=== PATIENT | female | born 2000 | race Caucasian/White ===

== ENCOUNTER 2020-11-17 16:08 | Emergency (ER) | payer OTHER, SELFPAY ==
--- NOTE | ~2020-11-17 | XR_ITS ---
EXAMINATION: XR chest 2V EXAM DATE: 11/17/2020 17:04 INDICATION: Dry Cough/Flu-Like Symptoms X 4 Days. TECHNIQUE: Frontal and lateral projections of the chest obtained and reviewed. There is no prior nilo dy for comparison. FINDINGS: The lungs are clear. There are no pleural effusions. The cardiomediastinal silhouette is within normal limits. There is no pneumothorax suspected. The bones and soft tissues are unremarkab le. IMPRESSION: Normal chest x-ray exam. Reviewed, dictated and finalized at location A. IMPRESSION: Normal chest x-ray exam.
[2020-11-17 16:20] VITALS: BP 117/88; PULSE 118; RESP 14; TEMP 37.2; O2SAT 100
--- NOTE | 2020-11-17 17:49 | ED.URI ---
HPI - URI/Sore Throat General Chief Complaint: Upper Respiratory Infection Stated Complaint: Chest pain Time Seen by Provider: 11/17/20 17:38 Source: patient and RN notes reviewed Mode of arrival: ambulatory Limitations: no limitations History of Present Illness HPI Narrative: Patient presents today with a 4 to 5-day history of body aches, dry cough, sweats, swollen and dry throat, shortness of breath, pain with inspiration, nasal congestion. Denies fever, abdominal pain, nausea, vomiting, diarrhea. No history of asthma. Has been taking DayQuil, NyQuil, Sudafed, migraine medication with some relief. Initially when her symptoms began she had a negative COVID-19 rapid test. Related Data Home Medications Medication Instructions Recorded Confirmed dextroamphetamine-amphetamine 20 mg PO DAILY 11/17/20 11/17/20 [Adderall XR] Allergies Allergy/AdvReac Type Severity Reaction Status Date / Time No Known Allergies Allergy Verified 11/17/20 17:13 Review of Systems Review of Systems: CONSTITUTIONAL: Denies fever, chills. + Body aches, sweats EYES: Denies visual changes, redness, or discharge. ENT: Denies rhinorrhea, sore throat, or otalgia.+ Congestion, sinus pressure CARDIOVASCULAR: Denies chest pain, palpitations, or edema. RESPIRATORY: + Cough, shortness of breath, pain with inspiration GASTROINTESTINAL: Denies abdominal pain, nausea, vomiting, or diarrhea. GENITOURINARY: Denies dysuria or hematuria. SKIN: Denies rash, itching, or wounds. MUSCULOSKELETAL: Denies back pain, joint pain, or myalgia. NEUROLOGIC: Denies numbness, tingling, or weakness.+ Headache PSYCH: Denies depression or anxiety. PMFSH Comments At time of signature, I have reviewed and agree with nursing past medical, surgical, social and family history unless otherwise noted. Please see nursing chart for further information. There is no relevant family history pertinent to the presenting complaint Exam Narrative: GENERAL: Well-appearing, well-nourished, and in no acute distress. HEAD: Normocephalic, atraumatic. EYES: EOMI. No redness or drainage. Conjunctivae normal. ENT: Mucous membranes pink and moist. Nares clear. No rhinorrhea. TMs normal bilaterally. Throat normal. Uvula midline. NECK: Normal AROM. Supple. No lymphadenopathy. CHEST: No respiratory distress. Clear to auscultation. Tenderness to the right anterior ribs. Tenderness to the left sternal border. HEART: Regular rate and rhythm. No murmur appreciated. Normal peripheral pulses. ABDOMEN: Soft, nontender, nondistended, normal active bowel sounds. MUSCULOSKELETAL: No bony tenderness. EXTREMITIES: Normal range of motion. No edema. SKIN: Warm, dry, no rash. Capillary refill normal. Normal skin turgor. NEURO: No focal deficits. Alert and oriented x3. Gait steady. PSYCH: Normal affect. No signs of depression or anxiety. Course Vital Signs Vital signs: Vital Signs Temperature 99.0 F 11/17/20 16:20 Pulse Rate 118 H 11/17/20 16:20 Respiratory Rate 14 11/17/20 16:20 Blood Pressure 117/88 11/17/20 16:20 Pulse Oximetry 100 11/17/20 16:20 Temperature 99.0 F 11/17/20 16:20 Pulse Rate 118 H 11/17/20 16:20 Respiratory Rate 14 11/17/20 16:20 Blood Pressure 117/88 11/17/20 16:20 Pulse Oximetry 100 11/17/20 16:20 Reviewed. Pt has been instructed to follow up with her PCP regarding her elevated blood pressure today. MDM - URI/Sore Throat Differential Diagnosis Differential diagnosis: Likely upper respiratory infection, sinusitis, viral infection, bronchitis and other (COVID-19, pneumonia) Lab Data Attestation: I reviewed the patient's lab results. Labs: Lab Results 11/17/20 Range/Units 16:35 POC SARS CoV-2 Ag Negative (Negative) Imaging Data Radiologist's impression: ITS Impressions Chest X-Ray 11/17/20 17:07 IMPRESSION: Normal chest x-ray exam. Critical Care Time Critical Care Time Critical Care Time:
== END 2020-11-17 18:00 | disposition home or self-care (01) ==
PROVIDERS: Emergency Provider Nurse Practitioner
DX: M94.0 Chondrocostal junction syndrome [Tietze] (principal); R09.1 Pleurisy; Z20.822 Contact with and (suspected) exposure to COVID-19
CPT/HCPCS: 71046; 87426; 99213; C9803; G0463

== ENCOUNTER 2021-02-25 12:19 | Emergency (ER) | payer OTHER, SELFPAY ==
--- NOTE | ~2021-02-25 | XR_ITS ---
EXAMINATION: XR chest 1V portable EXAM DATE: 02/25/2021 20:39 INDICATION: SOB, chest tightness, cold sweats, swollen/sore throat . TECHNIQUE: Portable AP frontal chest x-ray was obtained. Comparison is made to prior examination from 11/17/2020. FINDINGS: The lungs are clear. There are no pleural effusions. The cardiomediastinal silhouette is within normal limits. There is no pneumothorax suspected. The bones and soft tissues are unremarkab le. IMPRESSION: Normal chest x-ray exam. Reviewed, dictated and finalized at location A. ICATIONS SYSTEM ANALYST IMPRESSION: Normal chest x-ray exam.
[2021-02-25 12:53] VITALS: BP 115/87; PULSE 120; RESP 17; TEMP 37; O2SAT 100
--- NOTE | 2021-02-25 12:56 | ECG_ITS ---
Measurements Intervals [place] Rate: 109 P: 80 OR: 123 QRS: 84 QRSD: 82 T: 23 QT: 323 QTc: 435 Interpretive Statements SINUS TACHYCARDIA MINIMAL Q WAVES- INFERIOR LEADS BORDERLINE ST-T WAVE ABNORMALITY- INFERIOR LEADS ABNORMAL ECG Electronically Signed On 02-25-2021 13:02:55 INTEGRATION SOFTWARE ENGINEER by Sree Sheth D.O.
[2021-02-25 19:16] VITALS: BP 117/81; PULSE 116; TEMP 36.5; O2SAT 98
--- NOTE | 2021-02-25 20:24 | ED.SOB ---
HPI - SOB/Dyspnea General Chief Complaint: Shortness of Breath/Dyspnea <Vickie Barreto MD - Last Filed: 02/25/21 21:16> Stated Complaint: cant breathe <Vickie Barreto MD - Last Filed: 02/25/21 21:16> Time Seen by Provider: 02/25/21 20:13 <Vickie Barreto MD - Last Filed: 02/25/21 21:16> Source: patient <Vickie Barreto MD - Last Filed: 02/25/21 21:16> Mode of arrival: ambulatory <Vickie Barreto MD - Last Filed: 02/25/21 21:16> Limitations: no limitations <Vickie Barreto MD - Last Filed: 02/25/21 21:16> History of Present Illness HPI Narrative: This is a 20 year old female who presents for evaluation of shortness of breath and chest tightness. Patient states she has not felt well for 3 days. She reports hoarseness and swollen lymph nodes in her neck. She was evaluated at an urgent care yesterday for UTI but her symptoms have now resolved. She did not talk to them about her shortness of breath or chest tightness. She was started on antibiotics. She states she feels like when she lays down she can not catch her breath.She has diffuse chest tightness. She denies runny nose, sore throat, congestion, fever or chills. She denies leg swelling or calf pain. She discontinued control and adderall 1 month ago. She reports intermittent marijuana use but she has not used in 1 week. <Vickie Barreto MD - Last Filed: 02/25/21 21:16> Related Data Home Medications: Home Medications Medication Instructions Recorded Confirmed dextroamphetamine-amphetamine 20 mg PO DAILY 11/17/20 11/17/20 [Adderall XR] <Vickie Barreto MD - Last Filed: 02/25/21 21:16> Allergies/Adverse Reactions: Allergies Allergy/AdvReac Type Severity Reaction Status Date / Time No Known Allergies Allergy Verified 11/17/20 17:13 <Vickie Barreto MD - Last Filed: 02/25/21 21:16> Review of Systems Review of Systems: All systems reviewed & are unremarkable except as noted in HPI and below <Vickie Barreto MD - Last Filed: 02/25/21 21:16> [facility] Past Medical History Medical History: Medical History (Updated 02/25/21 @ 22:49 by Ranjeet Menjivar MD) Patient denies medical problems <Vickie Barreto MD - Last Filed: 02/25/21 21:16> Surgical History Surgical History: Surgical History (Updated 02/25/21 @ 20:28 by Vickie Barreto MD) No pertinent past surgical history <Vickie Barreto MD - Last Filed: 02/25/21 21:16> Social History Social History: Social History (Updated 02/25/21 @ 20:28 by Vickie Barreto MD) Smoking status: Never smoker Substance use type: marijuana <Vickie Barreto MD - Last Filed: 02/25/21 21:16> Exam Const: General: no acute distress and alert <Vickie Barreto MD - Last Filed: 02/25/21 21:16> Orientation/consciousness: patient oriented x3 <Vickie Barreto MD - Last Filed: 02/25/21 21:16> Eyes: EOM: EOMs intact bilaterally <Vickie Barreto MD - Last Filed: 02/25/21 21:16> Chest: Chest palpation & inspection: normal inspection of the chest <Vickie Barreto MD - Last Filed: 02/25/21 21:16> Resp: Effort & Inspection: normal respiratory effort and no retractions <Vickie Barreto MD - Last Filed: 02/25/21 21:16> Auscultation: clear to auscultation bilaterally <Vickie Barreto MD - Last Filed: 02/25/21 21:16> Cardio: Rate: tachycardic <Vickie Barreto MD - Last Filed: 02/25/21 21:16> Rhythm: regular rhythm <Vickie Barreto MD - Last Filed: 02/25/21 21:16> Heart sounds: no murmurs <Vickie Barreto MD - Last Filed: 02/25/21 21:16> GI: GI Palp: Yes Soft to palpation, No Tenderness to palpation present (GI) and No Guarding due to palpation present (GI) <Vickie Barreto MD - Last Filed: 02/25/21 21:16> Auscultation: normal bowel sounds <Vickie Barreto MD - Last Filed: 02/25/21 21:16> Skin: General skin exam: normal color <Vickie Barreto MD - Last Filed: 02/25/21 21:16
[2021-02-25 20:49] VITALS: O2SAT 100
[2021-02-25] MEDS: SODIUM CHLORIDE 0.9% IV 1,000 ML 999 ML IV CONT (21:03)
[2021-02-25] MEDS: LORazepam (*CRX) 0.5 MG TABLET PO (21:05)
[2021-02-25 21:16] LABS: Basophils Absolute Auto 0.1 K/mm3 (0.0-0.1); Basophils Percent Auto 0.6 % (0.2-1.2); Eosinophils Percent Auto 0.3 % (0-4.4); Hematocrit 45.2 % (37.0-47.0); Hemoglobin 15.5 g/dL (12.0-15.0); Immature Granulocyte Absolute 0.02 K/mm3 (0.00-0.031); Immature Granulocyte Percent A 0.3 % (0-0.5); Lymphocytes Absolute Auto 2.32 K/mm3 (0.9-3.2); Lymphocytes Percent Auto 29.6 % (18.3-44.2); Mean Corpuscular HGB Conc 34.3 g/dl (32-36); Mean Corpuscular Hemoglobin 30.4 pg (26-34); Mean Corpuscular Volume 88.6 fl (80-100); Mean Platelet Volume 9.8 fl (7.4-10.4); Monocytes Absolute Auto 0.7 K/mm3 (0.1-0.6); Monocytes Percent Auto 8.4 % (2.6-8.5); Neutrophils Absolute Auto 4.8 K/mm3 (1.3-6.7); Neutrophils Percent Auto 60.8 % (45.5-73.1); Platelet Count Result 291 k/mm3 (150-375); Red Cell Distribution Width 11.3 % (11.5-14.5); White Blood Count 7.9 K/mm3 (4.5-10.0)
[2021-02-25 21:21] LABS: Add Urine Microscopic? YES; Appearance Urine Clear (Clear); Bacteria Urine Trace /hpf; Bilirubin Urine Negative (Negative); Blood Urine Negative (Negative); Color Urine Amber (Yellow); Glucose Urine UA Negative (Negative); Ketones Urine 2+ mg/dL (Negative); Leukocyte Esterase Ur Negative LEU/UL (Negative); Mucus Urine Few /lpf; Nitrate Urine Negative (Negative); Protein Urine Negative (Negative); Specific Grav Ur 1.018 (1.001-1.035); Squamous Epithelial Cell Urine Moderate /hpf (Few); WBC Urine 0-3 /hpf
[2021-02-25 21:25] LABS: Prothrombin Time 12.6 Seconds (11.1-14.7)
[2021-02-25 21:26] LABS: Partial Thromboplastin Time 26.1 SECONDS (22.3-36.8)
[2021-02-25 21:27] LABS: Alanine Aminotransferase 17 U/L (4-35); Albumin Level 5.1 g/dL (3.5-5.1); Alkaline Phosphatase 94 U/L (38-126); Anion Gap 17 mmol/L (8-16); Aspartate Amino Transferase 27 U/L (14-36); Bilirubin,Total 0.7 mg/dL (0.2-1.3); Blood Urea Nitrogen 9 mg/dL (7-17); Carbon Dioxide 21 mmol/L (22-30); Chloride 102 mmol/L (98-107); Estimated CRCL calculation 87 ml/min; Estimated Glomerular Filt Rate > 60; Glucose 96 mg/dL (65-110); Lactic Acid Reflex 2.5 mmol/L (0.7-2.1); Lipase 73 U/L (23-300); Potassium 3.9 mmol/L (3.4-5.0); Sodium 140 mmol/L (137-145)
[2021-02-25 21:38] LABS: Amphetamine Screen Urine Negative (Negative); Barbiturate Screen Urine Negative (Negative); Benzodiazepines Screen Urine Negative (Negative); Cannabinoid Screen Urine Positive (Negative); Cocaine Screen Urine Negative (Negative); Methadone Screen Urine Negative (Negative); Opiate Screen Urine Negative (Negative); Phencyclidine Screen Urine Negative (Negative); Troponin I < 0.012 ng/mL (0.000-0.034)
[2021-02-25 21:46] LABS: D Dimer 0.27 ug/mL (<0.48)
[2021-02-25 22:20] VITALS: BP 118/78; PULSE 82; RESP 14; O2SAT 99
[2021-02-25 23:10] VITALS: BP 112/88; PULSE 97; RESP 18; O2SAT 98
[2021-02-26 00:14] LABS: Reflex Lactic Acid Yes or No Add Lactic
[2021-02-26 00:42] LABS: Monoscreen Negative (Negative); Negative Monotest Control Negative (Negative); Positive Monotest Control Positive (Positive)
[2021-02-26 14:36] LABS: SARS-CoV-2 RNA PCR Negative
== END 2021-02-25 23:12 | disposition home or self-care (01) ==
PROVIDERS: General Practice; Emergency Provider Emergency Medicine
DX: R06.02 Shortness of breath (principal); Z20.822 Contact with and (suspected) exposure to COVID-19; R00.0 Tachycardia, unspecified
CPT/HCPCS: 36415; 71045; 80053; 80307; 81001; 81025; 83605; 83690; 83735; 84484; 85025; 85380; 85610; 85730; 86308; 87081; 87804; 87880; 93005; 96360; 99284; A9270; C9803; J7030; U0003; U0005

== ENCOUNTER 2023-02-24 03:20 | Day surgery (SDC) | payer OTHER, SELFPAY ==
[2023-02-24] VITALS (14 sets, daily range): BP systolic 95–134; BP diastolic 53–94; PULSE 68–100; RESP 14–18; TEMP 36–37.3; O2SAT 98–100
--- NOTE | ~2023-02-24 | CT_ITS ---
CT of the Abdomen and Pelvis: Indication: Abdominal Technique: 2.5 mm axial scans were obtained through the abdomen and pelvis following intravenous adm inistration of 100 cc of Omnipaque 350. Dose reduction technique was used on this scan by utilizing a utomated exposure control and iterative reconstruction technique. The dose-length product (DLP) was 4 49.22 mGy-cm. Findings: Scans through the lung bases are unremarkable. The liver, spleen, pancreas, gallbladder, adrenals and kidneys are within normal limits. No evidence of aortic aneurysm. No lymphadenopathy. No bowel obstruction. Appendix appears to be dilated to 12 mm with thickening and hyperemia of the wa ll, with mild periappendiceal stranding/fluid. No abscess or free air evident. Images through the pelvis were performed. Urinary bladder unremarkable. No adnexal mass evident. No a scites. Impression: Probable acute appendicitis, with the appendix extending into the right pelvis region. Small periappe ndiceal fluid, without distinct abscess or free air. Reviewed, dictated and finalized at [facility]. ROLL INSPECTOR Impression: Probable acute appendicitis, with the appendix extending into the right pelvis region. Small periappendiceal fluid, without distinct abscess or free air.
[2023-02-24 03:56] LABS: Basophils Absolute Auto 0.1 K/mm3 (0.0-0.1); Basophils Percent Auto 0.3 % (0.2-1.2); Eosinophils Absolute Auto 0.1 K/mm3 (0-0.3); Eosinophils Percent Auto 0.7 % (0-4.4); Hematocrit 42.3 % (37.0-47.0); Hemoglobin 14.1 g/dL (12.0-15.0); Immature Granulocyte Absolute 0.07 K/mm3 (0.00-0.031); Immature Granulocyte Percent A 0.4 % (0-0.5); Lymphocytes Absolute Auto 2.46 K/mm3 (0.9-3.2); Lymphocytes Percent Auto 15.4 % (18.3-44.2); Mean Corpuscular HGB Conc 33.3 g/dl (32-36); Mean Corpuscular Hemoglobin 29.9 pg (26-34); Mean Corpuscular Volume 89.6 fl (80-100); Mean Platelet Volume 9.5 fl (7.4-10.4); Monocytes Percent Auto 6.4 % (2.6-8.5); Neutrophils Absolute Auto 12.3 K/mm3 (1.3-6.7); Neutrophils Percent Auto 76.8 % (45.5-73.1); Platelet Count Result 286 k/mm3 (150-375); Red Blood Count 4.72 M/mm3 (4.2-5.4); Red Cell Distribution Width 11.1 % (11.5-14.5)
[2023-02-24 04:00] LABS: Appearance Urine Clear (Clear); Bacteria Urine None Seen /hpf; Bilirubin Urine Negative (Negative); Blood Urine 2+ (Negative); Color Urine Yellow (Yellow); Glucose Urine UA Negative (Negative); Ketones Urine Negative (Negative); Leukocyte Esterase Ur Negative LEU/UL (Negative); Nitrate Urine Negative (Negative); Non Pathogenic Casts 0-2; Protein Urine Negative (Negative); Specific Grav Ur 1.021 (1.001-1.035); Squamous Epithelial Cell Urine None seen /hpf (Few); Urobilinogen Urine 0.2 mg/dL (<2.0); WBC Urine 0-5 /hpf; pH Urine 5.5 (5.0-9.0)
[2023-02-24 04:07] LABS: Alanine Aminotransferase 19 U/L (6-35); Albumin Level 4.4 g/dL (3.5-5.1); Alkaline Phosphatase 80 U/L (38-126); Anion Gap 10 mmol/L (8-16); Aspartate Amino Transferase 23 U/L (14-36); Bilirubin,Total 0.5 mg/dL (0.2-1.3); Blood Urea Nitrogen 14 mg/dL (7-17); Calcium 9.2 mg/dL (8.4-10.2); Carbon Dioxide 26 mmol/L (22-30); Chloride 101 mmol/L (98-107); Estimated CRCL calculation 116 ml/min; Estimated Glomerular Filt Rate > 60; Glucose 98 mg/dL (65-110); Lipase 63 U/L (23-300); Potassium 3.6 mmol/L (3.4-5.0); Sodium 137 mmol/L (137-145)
[2023-02-24 04:24] LABS: Add Urine Microscopic? YES
--- NOTE | 2023-02-24 05:08 | ED.ABDPAIN ---
HPI - Abdominal Pain General Chief Complaint: Abdominal Pain Stated Complaint: abd pain Time Seen by Provider: 02/24/23 03:50 Source: patient Limitations: no limitations History of Present Illness HPI narrative: Patient is a 22-year-old female presented emergency department complaining of abdominal pain. Patient states the pain started at p.m. last night, points to the epigastrium in regard to location of her pain, states sister after he very clean, describes it as sharp, stabbing, constant, has not tried anything for the pain, denies any history of this pain in the past, denies radiation of the pain, notes that the pain is better when laying on her right side, pain is worse with movement. Patient's last menstrual period was 1 week ago. Patient denies history of kidney stones. Patient denies nausea, vomiting, diarrhea, melena, hematochezia, chest pain, shortness of breath, cough, fever, sore throat, recent injuries, recent illness, numbness, weakness, dysuria, hematuria, urinary frequency, urinary urgency, rash, vaginal discharge. Patient admits to being sexually active. Related Data Home Medications Medication Instructions Recorded Confirmed norethindrone 1 mg-ethinyl 1 tablet PO DAILY 12/21/21 12/23/21 estradiol 10 mcg (24)-iron 10 mcg(2) tablet (Lo Loestrin Fe) lisdexamfetamine 20 mg capsule 20 mg PO DAILY 12/23/21 12/23/21 (Vyvanse) Allergies Allergy/AdvReac Type Severity Reaction Status Date / Time doxycycline Allergy Intermediate esophogitis Verified 02/24/23 03:38 Review of Systems Review of Systems: A 10 system review of systems was completed on the patient and is negative except for what is stated in the HPI. Nursing and ancillary documentation was reviewed. [facility] Past Medical History Medical History (Updated 02/24/23 @ 07:01 by Nishant Elizabeth DO) Allergies Patient denies medical problems Surgical History Surgical History (Updated 12/23/21 @ 13:29 by Dayton Paredes, LAW RESEARCHER-C) History of placement of ear tubes History of right knee surgery Right knee scope History of wisdom tooth extraction No pertinent past surgical history Family History Family History Mother Diabetes mellitus Grandparent Cancer Social History Social History Smoking status: Never smoker Alcohol intake: current Substance use: former Substance use type: marijuana Living arrangements: with family Occupation/Education: student Additional occupation/education comments: [employer] Comments At time of signature, I have reviewed and agree with nursing past medical, surgical, social and family history unless otherwise noted. Please see the nursing chart for further information. There is no relevant family history pertinent to the presenting complaint. Exam Narrative: CONST: Mild acute distress. Well nourished. HENMT: Head is normocephalic and atraumatic. Tacky mucous membranes. No posterior oropharynx erythema. EYES: No conjunctival icterus, injection, or pallor. PERRL. NECK: No meningeal signs. RESP: Able to speak in full sentences. Normal respiratory effort. CTAB. CARDIO: Regular rate. Regular rhythm. 2+ DP and radial pulses bilaterally. GI: Nondistended. Soft. Mild tenderness to palpation in the epigastrium, left lower quadrant, right lower quadrant. Positive McBurney's point tenderness palpation. Negative Martinez sign. No palpable masses or hernias. Positive Rovsing sign. No rebound or guarding or rigidity. : No CVA tenderness to palpation. SKIN: No rashes or lesions noted on exposed skin. NEURO: Oriented x3. Moves all extremities. EXTREM/MSK/BACK: No pedal edema. PSYCH: Normal affect. Course Vital Signs Vital signs: Vital Signs Temperature 97.8 F 02/24/23 03:35 Pulse Rate 98 02/24/23 03:35 Respiratory Rate 15 02/24/23 03:35 Blood P
[2023-02-24] MEDS: SODIUM CHLORIDE 0.9% IV 1,000 ML 999 ML IV CONT (05:19)
[2023-02-24] MEDS: ONDANSETRON INJ 4 MG/2 ML VIAL IV PUSH (05:19)
[2023-02-24] MEDS: MORPHINE SULFATE (*CRX) 4 MG/ML INJ IV PUSH (05:19)
[2023-02-24 05:35] LABS: Lactic Acid Reflex 0.6 mmol/L (0.7-2.0)
[2023-02-24 05:40] LABS: CRP < 0.5 mg/dL (<1.0); Magnesium 1.7 mg/dL (1.6-2.3)
[2023-02-24] MEDS: PIPERACILLIN/TAZ 4.5G/NS 100ML 4.5 GM/100 ML BAG IVPB (07:34)
--- NOTE | 2023-02-24 08:52 | PM.IMHP ---
H&P: HPI History of Present Illness Date/Time: 02/24/23 08:52 Chief Complaint: Abdominal pain Narrative: This is a 22-year-old woman who presented to the ER with abdominal pain. She reports two nights ago noticing some mild generalized abdominal pain, but this seemed to improve through the night. Yesterday, she was feeling well until around 9:00 pm last night after eating [employer]. Her generalized abdominal pain returned. It was worse across the lower abdomen and periumbilical area. The pain progressively worsened throughout the night and woke her from sleep. Since it did not improve, she presented to the ER for evaluation. Labs showed a WBC count of 16,000. CT of the abdomen and pelvis showed probable acute appendicitis with the appendix dilated to 12 mm and mild periappendiceal stranding and fluid. No CT evidence of perforation or abscess. She is now seen for surgical evaluation. No previous abdominal surgeries. Review of Systems Review of Systems: All systems reviewed & are unremarkable except as noted in HPI and below PMFSH Past Medical History Medical History (Updated 02/24/23 @ 09:12 by OLVIN Kuo) No pertinent past medical history Surgical History Surgical History History of placement of ear tubes History of right knee surgery Right knee scope History of wisdom tooth extraction Family History Family History Mother Diabetes mellitus Grandparent Cancer Social History Social History Smoking status: Never smoker Alcohol intake: current Substance use: former Substance use type: marijuana Living arrangements: with family Occupation/Education: student Additional occupation/education comments: [employer] Meds Home Medications and Allergies Home Medications Medication Instructions Recorded Confirmed Type norethindrone 1 mg-ethinyl 1 tablet PO DAILY 12/21/21 12/23/21 History estradiol 10 mcg (24)-iron 10 mcg(2) tablet (Lo Loestrin Fe) lisdexamfetamine 20 mg capsule 20 mg PO DAILY 12/23/21 12/23/21 History (Vyvanse) Allergies Allergy/AdvReac Type Severity Reaction Status Date / Time doxycycline Allergy Intermediate esophogitis Verified 02/24/23 03:38 Vital Signs Vital Signs - 24 hr 02/24/23 03:35 02/24/23 05:56 02/24/23 07:22 Temperature 97.8 F Pulse Rate 98 96 100 Respiratory Rate 15 16 15 Blood Pressure 126/94 H 134/78 113/65 Pulse Oximetry 99 100 100 Oxygen Delivery Room Air Exam Const: General: comfortable and no acute distress Nutritional Appearance: average body habitus Orientation/consciousness: patient oriented x3 HENMT: Head: normocephalic and atraumatic Ears: hearing grossly normal bilaterally Mouth: Yes moist mucous membranes Eyes: General: appearance normal, both eyes and all related structures Pupils: Equal, round and reactive pupils present Neck: Neck: normal visual inspection and full ROM Resp: Effort & Inspection: no respiratory distress Auscultation: clear to auscultation bilaterally Cardio: Rate: regular rate Rhythm: regular rhythm Heart sounds: S1 normal heart sound present and S2 normal heart sound present Peripheral pulses: Peripheral pulses 2+ throughout GI: Inspection: non-distended GI Palp: Yes Soft to palpation, Yes Tenderness to palpation present (GI) (diffuse tenderness most focally in the RLQ, pain in RLQ c palpation of LLQ), Yes Guarding due to palpation present (GI) (RLQ), Yes No hepatosplenomegaly present, No Hernia present and No Palpable mass present (no palpable mass) Percussion: Yes normal to percussion Auscultation: normal bowel sounds Skin: General skin exam: normal color Neuro: General: moves all extremities and no focal motor deficits Speech: normal speech Motor exam (neuro): 5/5 motor strength present throughout Extrem: Gener
[2023-02-24] MEDS: fentaNYL CITRATE INJ (*CRX) 100 MCG/2 ML VIAL 25 MCG IV PUSH ×3 (09:07→09:26)
[2023-02-24] MEDS: KETOROLAC 15 MG/ML VIAL (*BKC) IV PUSH (10:10)
--- NOTE | 2023-02-24 11:01 | WPDANESEPPF ---
Anes - Initial Pre Proc Eval Procedure: Operation Date: 02/24/23 12:00 Proposed Procedures p Laparoscopic Appendectomy, Possible Open - Ludin Roldan DO Date/Time: 02/24/23 11:01 Surgeon: Ludin Roldan DO Pre Op Diagnosis: abd pain Patient Data Age: 22 Gender: F Height: 1.57 m Weight: 73 kg Last Vital Signs Temp 37.3 C 02/24/23 08:45 Pulse 98 02/24/23 08:45 Resp 18 02/24/23 08:45 BP 112/62 02/24/23 08:45 Pulse Ox 100 02/24/23 08:45 O2 Del Method Room Air 02/24/23 08:45 Allergies Allergy/AdvReac Type Severity Reaction Status Date / Time doxycycline Allergy Intermediate esophogitis Verified 02/24/23 09:41 Home Medications Medication Instructions Recorded Confirmed Type No Home Medications 02/24/23 02/24/23 History Laboratory Tests 02/24/23 02/24/23 03:46 05:20 WBC 16.0 H K/mm3 (4.5-10.0) RBC 4.72 M/mm3 (4.2-5.4) Hgb 14.1 g/dL (12.0-15.0) Hct 42.3 % (37.0-47.0) MCV 89.6 fl (80-100) MCH 29.9 pg (26-34) MCHC 33.3 g/dl (32-36) RDW 11.1 L % (11.5-14.5) Plt Count 286 k/mm3 (150-375) MPV 9.5 fl (7.4-10.4) Immature Gran % (Auto) 0.4 % (0-0.5) Neut % (Auto) 76.8 H % (45.5-73.1) Lymph % (Auto) 15.4 L % (18.3-44.2) Anderson % (Auto) 6.4 % (2.6-8.5) Eos % (Auto) 0.7 % (0-4.4) Baso % (Auto) 0.3 % (0.2-1.2) Lymph # (Auto) 2.46 K/mm3 (0.9-3.2) Anderson # (Auto) 1.0 H K/mm3 (0.1-0.6) Eos # (Auto) 0.1 K/mm3 (0-0.3) Baso # (Auto) 0.1 K/mm3 (0.0-0.1) Abs Immat Gran (auto) 0.07 H K/mm3 (0.00-0.031) Absolute Neuts (auto) 12.3 H K/mm3 (1.3-6.7) Absolute Nucleated RBC 0.0 K/mm3 (0.0-0.012) Nucleated RBC % 0.0 % (0.0-0.2) Sodium 137 mmol/L (137-145) Potassium 3.6 mmol/L (3.4-5.0) Chloride 101 mmol/L (98-107) Carbon Dioxide 26 mmol/L (22-30) Anion Gap 10 mmol/L (8-16) BUN 14 D mg/dL (7-17) Creatinine 0.60 L mg/dL (0.7-1.0) Estim Creat Clear Calc 116 ml/min Estimated GFR > 60 (59 - ) Glucose 98 mg/dL (65-110) Lactic Acid 0.6 L mmol/L (0.7-2.0) Calcium 9.2 mg/dL (8.4-10.2) Magnesium 1.7 mg/dL (1.6-2.3) Total Bilirubin 0.5 mg/dL (0.2-1.3) AST 23 U/L (14-36) ALT 19 U/L (6-35) Alkaline Phosphatase 80 U/L (38-126) C-Reactive Protein < 0.5 mg/dL (<1.0) Total Protein 8.0 g/dL (6.3-8.2) Albumin 4.4 g/dL (3.5-5.1) Lipase 63 U/L (23-300) Urine Color Yellow (Yellow) Urine Appearance Clear (Clear) Urine pH 5.5 (5.0-9.0) Ur Specific [place] 1.021 (1.001-1.035) Urine Protein Negative mg/dL (Negative) Urine Glucose (UA) Negative mg/dL (Negative) Urine Ketones Negative mg/dL (Negative) Ur Blood (Man) 2+ H (Negative) Urine Nitrate Negative (Negative) Urine Bilirubin Negative (Negative) Urine Urobilinogen 0.2 mg/dL (<2.0) Leukocyte Esterase Rfl Negative ELBA/UL (Negative) Urine RBC 6-10 H /hpf (0-2) Urine WBC 0-5 /hpf Ur Squamous Epith Cells None seen /hpf (Few) Urine Bacteria None seen /hpf Urine Casts 0-2 Patient hx anesthesia problems: none Family hx anesthesia problems: none Results Review: All pre-operative results and documents have been reviewed as part of the pre-operative evaluation. [facility] Past Medical History Medical History No pertinent past medical history Surgical History Surgical History History of placement of ear tubes History of right knee surgery Right knee scope History of wisdom tooth extraction Family His
--- NOTE | 2023-02-24 11:48 | WPDHPUPDATE1 ---
History and Physical Update Update Date/Time: 02/24/23 11:48 History and Physical has been reviewed, including an updated exam of the patient. There are NO changes in the patient's condition. Risks, benefits, and alternatives have been discussed and questions answered. Patient agrees to proceed with procedure.
[2023-02-24] MEDS: BUPIVACAINE/EPINEPHRINE 0.5% 30 ML VIAL INFILTRATE (12:22)
--- NOTE | 2023-02-24 12:43 | W.PM.PROC2 ---
Procedure Note - Detailed Date of Procedure 02/24/23 Pre-op Diagnosis Acute appendicitis Post-op Diagnosis Same (Acute appendicitis without perforation or abscess) Procedure Performed Laparoscopic appendectomy Surgeon Ludin Roldan, DO Anesthesia General and Local (0.5% bupivicaine with epinephrine) Indications This is a 22-year-old woman who presented to the emergency department this morning with generalized abdominal pain. The pain started initially in the periumbilical and epigastric region, but this morning it has migrated more towards the lower abdomen. She has never had symptoms like this in the past. In the emergency department [place] [address] showed evidence of acute appendicitis. Discussions were made with the patient about further treatment options and decision was made to proceed with laparoscopic appendectomy, possible open. Findings Laparoscopic appendectomy was performed. The appendix appeared dilated and indurated, but there was no evidence of perforation or abscess. The base of the appendix appeared healthy and viable. No other intra-abdominal abnormalities were noted. The appendix was removed and sent to the lab for pathology. Description of Procedure Procedure as well as risks, benefits, and alternatives were explained to the patient. The patient agreed to proceed. Written consent was obtained and placed in chart prior to procedure. The patient was brought back to surgical suite. She was placed supine on operating table. Time-out was done to confirm the patient and procedure. The patient was then intubated by the Anesthesia Department. Her abdomen was prepped and draped in sterile fashion using chlorhexidine prep. A 5 mm incision was made just to the left of the patient's umbilicus and a 5 mm Optiview trocar was advanced through the abdominal layers under direct visualization. Once inside the peritoneal cavity, carbon dioxide insufflation was used to create a pneumoperitoneum. The camera was inserted and the abdomen was inspected. No immediate abnormalities were identified. The patient was then placed in slight Trendelenburg position and rotated to the left. A 5 mm incision was made in the suprapubic region in midline and a 5 mm trocar was inserted under direct visualization. A 12 mm incision was made in the left lower quadrant and a 12 mm trocar was inserted under direct visualization. The right lower quadrant was carefully inspected. The cecum was identified and then this was traced back to the appendix. The appendix was identified and grasped at the mesoappendix and lifted anteriorly. Careful blunt dissection was carried out at the base of the appendix through the mesoappendix using a [place] grasper. An Endo-JOANN 45 mm blue load stapler was then advanced across the base of the appendix and clamped and fired. A white reload was then clamped across the mesoappendix and fired. This freed up our appendix completely. It was then placed in an EndoCatch bag and removed through the left lower quadrant port. The staple lines were then inspected. Hemostasis appeared adequate and the staple lines appeared secure. The area was then irrigated with sterile saline. The pelvis was then carefully inspected and irrigated with sterile saline as well and the remainder of the abdomen was carefully inspected. The patient was then flattened out in bed. One final inspection was made around the abdominal cavity and no other abnormalities were seen. The left lower quadrant port was removed and a Bayron-Marleny cone was used to approximate the fascia with an 0 Vicryl simple interrupted suture. The remaining ports were then removed under direct visualization. The camera was removed and the pneumoperitoneum was released. 0.5% bupivacaine with epinephrine was infiltrated locally around each of the incisions. The skin of the incisions was then approximated using 4-0 Monocryl subcuticular suture and Exof
[2023-02-24] MEDS: LACTATED RINGERS 1,000 ML 30 ML IV CONT ×2 (12:45)
[2023-02-24] MEDS: diphenhydrAMINE HCl INJ 50 MG/ML VIAL 25 MG IV PUSH (13:37)
== END 2023-02-24 15:31 | disposition home or self-care (01) ==
LOC: ANHED 07:58 → ANHSURGERY 08:02
PROVIDERS: Emergency Provider Student in an Organized Health Care Education/Training Program; Visit Provider Surgery
PROC: 0DTJ4ZZ Resection of Appendix, Percutaneous Endoscopic Approach (ICD-10-PCS; CPT 44970; principal; 2023-02-24 12:00)
DX: K35.80 Unspecified acute appendicitis (principal); F12.90 Cannabis use, unspecified, uncomplicated; Z80.9 Family history of malignant neoplasm, unspecified
CPT/HCPCS: 44970; 36415; 74177; 80053; 81001; 81025; 83605; 83690; 83735; 85025; 86140; 88304; 96361; 96365; 96375; 99285; J1100; J1170; J1200; J1885; J2250; J2270; J2405; J2543; J2704; J3010; J7030; J7120; Q9967

== ENCOUNTER 2025-01-06 12:08 | Emergency (ER) | payer OTHER, BC, SELFPAY ==
--- OUTSIDE RECORDS SUMMARY | 2015-01-10 08:38 | XMS_ITS | Continuity of Care Document ---
Author Organization [facility] Address [address] [place] [address] [address] [place] [address] Phone Care Team Providers Care Bone Drier Name Role Phone Alberto Reed DPT Unavailable Unavailable Procedures Procedure Date THERAPEUTIC EXERCISES NEUROMUSCULAR RE-ED FUNC ACTIVITY HOT/COLD PACK ELECTRIC STIMULATION UNATT THERAPEUTIC EXERCISES NEUROMUSCULAR RE-ED FUNC ACTIVITY HOT/COLD PACK ELECTRIC STIMULATION UNATT THERAPEUTIC EXERCISES NEUROMUSCULAR RE-ED FUNC ACTIVITY HOT/COLD PACK PT RE-EVALUATION THERAPEUTIC EXERCISES NEUROMUSCULAR RE-ED FUNC ACTIVITY THERAPEUTIC EXERCISES NEUROMUSCULAR RE-ED FUNC ACTIVITY HOT/COLD PACK ELECTRIC STIMULATION UNATT THERAPEUTIC EXERCISES NEUROMUSCULAR RE-ED FUNC ACTIVITY HOT/COLD PACK ELECTRIC STIMULATION UNATT THERAPEUTIC EXERCISES NEUROMUSCULAR RE-ED HOT/COLD PACK ELECTRIC STIMULATION UNATT PT RE-EVALUATION THERAPEUTIC EXERCISES HOT/COLD PACK ELECTRIC STIMULATION UNATT THERAPEUTIC EXERCISES NEUROMUSCULAR RE-ED FUNC ACTIVITY THERAPEUTIC EXERCISES NEUROMUSCULAR RE-ED FUNC ACTIVITY HOT/COLD PACK THERAPEUTIC EXERCISES MANUAL THERAPY HOT/COLD PACK THERAPEUTIC EXERCISES NEUROMUSCULAR RE-ED MANUAL THERAPY FUNC ACTIVITY HOT/COLD PACK THERAPEUTIC EXERCISES NEUROMUSCULAR RE-ED MANUAL THERAPY FUNC ACTIVITY HOT/COLD PACK THERAPEUTIC EXERCISES NEUROMUSCULAR RE-ED MANUAL THERAPY FUNC ACTIVITY HOT/COLD PACK ELECTRIC STIMULATION UNA THERAPEUTIC EXERCISES NEUROMUSCULAR RE-ED MANUAL THERAPY FUNC ACTIVITY HOT/COLD PACK ELECTRIC STIMULATION UNATT THERAPEUTIC EXERCISES NEUROMUSCULAR RE-ED MANUAL THERAPY FUNC ACTIVITY HOT/COLD PACK THERAPEUTIC EXERCISES NEUROMUSCULAR RE-ED MANUAL THERAPY FUNC ACTIVITY HOT/COLD PACK ELECTRIC STIMULATION UNA THERAPEUTIC EXERCISES NEUROMUSCULAR RE-ED MANUAL THERAPY FUNC ACTIVITY HOT/COLD PACK ELECTRIC STIMULATION UNATT THERAPEUTIC EXERCISES NEUROMUSCULAR RE-ED MANUAL THERAPY FUNC ACTIVITY HOT/COLD PACK ELECTRIC STIMULATION UNA PT RE-EVALUATION THERAPEUTIC EXERCISES NEUROMUSCULAR RE-ED MANUAL THERAPY FUNC ACTIVITY HOT/COLD PACK ELECTRIC STIMULATION UNATT THERAPEUTIC EXERCISES NEUROMUSCULAR RE-ED MANUAL THERAPY FUNC ACTIVITY HOT/COLD PACK ELECTRIC STIMULATION UNATT THERAPEUTIC EXERCISES NEUROMUSCULAR RE-ED MANUAL THERAPY FUNC ACTIVITY HOT/COLD PACK ELECTRIC STIMULATION UNATT THERAPEUTIC EXERCISES NEUROMUSCULAR RE-ED MANUAL THERAPY FUNC ACTIVITY HOT/COLD PACK ELECTRIC STIMULATION UNATT THERAPEUTIC EXERCISES NEUROMUSCULAR RE-ED MANUAL THERAPY FUNC ACTIVITY HOT/COLD PACK ELECTRIC STIMULATION UNATT Electrodes THERAPEUTIC EXERCISES MANUAL THERAPY FUNC ACTIVITY HOT/COLD PACK THERAPEUTIC EXERCISES MANUAL THERAPY FUNC ACTIVITY HOT/COLD PACK PT EVALUATION THERAPEUTIC EXERCISES HOT/COLD PACK THERAPEUTIC EXERCISES NEUROMUSCULAR RE-ED MANUAL THERAPY FUNC ACTIVITY 15 MIN HOT/COLD PACK THERAPEUTIC EXERCISES MANUAL THERAPY FUNC ACTIVITY 15 MIN HOT/COLD PACK ELECTRIC STIMULATION UNATT THERAPEUTIC EXERCISES MANUAL THERAPY HOT/COLD PACK ELECTRIC STIMULATION UNATT THERAPEUTIC EXERCISES MANUAL THERAPY HOT/COLD PACK THERAPEUTIC EXERCISES MANUAL THERAPY HOT/COLD PACK ELECTRIC STIMULATION UNATT THERAPEUTIC EXERCISES MANUAL THERAPY HOT/COLD PACK ELECTRIC STIMULATION UNATT PT EVALUATION THERAPEUTIC EXERCISES MANUAL THERAPY HOT/COLD PACK ELECTRIC STIMULATION UNATT PT RE-EVALUATION THERAPEUTIC EXERCISES MANUAL THERAPY HOT/COLD PACK ELECTRIC STIMULATION UNATT THERAPEUTIC EXERCISES MANUAL THERAPY HOT/COLD PACK ELECTRIC STIMULATION UNATT PT EVALUATION THERAPEUTIC EXERCISES MANUAL THERAPY HOT/COLD PACK ELECTRIC STIMULATION UNATT Electrodes Advance Directives Directive Yes / No Effective Date File Name No Information Encounters Encounter Description Practice Location Reason(s) For Visit Diagnoses Date Provider Providers Copied on Encounter [address], [id number], tel:[phone] [facility] No Information Brianna Dominguez. [address] [facility], [facility] [address], [place], [facility], . tel:[phone] [address] [address], [place], [address], tel:[phone] [facility] No Information Brianna Dominguez. [address] [facility], [facility] [address], [place], [facility], [place]. tel:[phone] Referring Provider: Juan Scott, [address] [facility] [address], [place], [address]. tel:[phone] [address], [place], [id number], tel:[phone] [facility] No Information Brianna Dominguez. [address] [facility], [address], [place], [facility], [place]. tel:[phone] Referring Provider: Juan Scott, [address] [facility] [address], [place], [address]. tel:[phone], [place], [place], [address], tel:[phone] [facility] No Information Brianna Dominguez. [address] [facility], [address], [place], [address], [place]. tel:[phone] Referring Provider: Juan Scott, [address] [place] [address] [address], [place], [address]. tel:[phone], [place], [place], [address], [place] tel:[phone] [facility] Pain in left kneeMuscle weakness (generalized)Un specified abnormalities of gait and mobility Brianna Dominguez. [address] [facility], [address], [place], [facility], [place]. tel:[phone] Referring Provider: Juan Scott, [address] [place] [address] [address], [place], [address]. tel:[phone] [address], [place], [place], [address], [place] tel:[phone] [facility] No Information Brianna Dominguez. [address] [facility], [address], [place], [address], [place]. tel:[phone] Referring Provider: Juan Scott [address] [place] [address] [address], [place], [address]. tel:[phone] [address], [place], [address], [place] tel:[phone] [facility] No Information Brianna Dominguez. [address] [facility], [address], [place], [address], [place]. tel:[phone] Referring Provider: Juan Scott [address] [place] [address] [address], [place], [address]. tel:[phone], [place], [place], [address], [place] tel:[phone] [facility] No Information Brianna Dominguez. [address] [facility], [address], [place], [address], [place]. tel:[phone] Referring Provider: Juan Scott, [address] [place] [address] [address], [place], [address]. tel:[phone], [place], [place], [address], [place] tel:[phone] [facility] No Information Brianna Dominguez. [address] [facility], [address], [place], [address], [place]. tel:[phone] Referring Provider: Juan Scott [address] [place] [address] [address], [place], [address]. tel:[phone], [place], [place], [address], [place] tel:[phone] [facility] No Information Brianna Dominguez. [address] [facility], [address], [place], [address], [place]. tel:[phone] Referring Provider: Juan Scott, [address] [place] [address] [address], [place], [address]. tel:[phone], [place], [place], [address], [place] tel:[phone] [facility] No Information Jennifer Cerda. [address] [facility], [address], [place], [address], [place]. tel:[phone] Referring Provider: Juan Scott, [address] [place] [address] [address], [place], [address]. tel:[phone], [place], [place], [address], [place] tel:[phone] [facility] No Information Rodriguez Zaida. [address] [facility], [address], [place], [address], [place]. tel:[phone] Referring Provider: Juan Scott [address] [place] [address] [address], [place], [address]. tel:[phone] [address], [place], [place], [address], [place] tel:[phone] [facility] No Information Rodriguez Zaida. [address] [facility], [address], [place], [address], [place]. [phone] Referring Provider: Juan Scott, [address] [place] [address] [address], [place], [address]. tel:[phone] [address], [place], [place], [address], [place] tel:[phone] [facility] No Information Hou Molly. [address] [facility], [address], [place], [address], [place]. tel:[phone] Referring Provider: Juan Scott [address] [place] [address] [address], [place], [address]. tel:[phone], [place], [place], [address], [place] tel:[phone] [facility] No Information Hou Molly. [address] [facility], [address], [place], [address], [place]. tel:[phone] Referring Provider: Juan Scott [address] [place] [address] [address], [place], [address]. tel:[phone], [place], [place], [address], [place] tel:[phone] [facility] No Information Hou Molly. [address] [facility], [address], [place], [address], [place]. tel:[phone] Referring Provider: Juan Scott, [address] [place] [address] [address], [place], [address]. tel:[phone], [place], [place], [address], tel:[phone] [facility] No Information Hou Molly. [address] [facility], [address], [place], [facility], [place]. tel:[phone] Referring Provider: Juan Scott [address] [place] [address] [address], [place], [address]. tel:[phone], [place], [place], [address], tel:[phone] [facility] No Information Hou Molly. [address] [facility], [address], [place], [facility], [place]. tel:[phone] Referring Provider: Juan Scott [address] [place] [address] [address], [place], [address]. tel:[phone], [place], [place], [address], [place] tel:[phone] [facility] No Information Hou Molly. [address] [facility], [address], [place], [facility], [place]. tel:[phone] Referring Provider: Juan Scott [address] [place] [address] [address], [place], [address]. tel:[phone], [place], [place], [address], [place] tel:[phone] [facility] No Information Hou Molly. [address] [facility], [address], [place], [facility], [place]. tel:[phone] Referring Provider: Juan Scott [address] [place] [address] [address], [place], [address]. tel:[phone], [place], [place], [address], [place] tel:[phone] [facility] No Information Hou Molly. [address] [facility], [address], [place], [facility], . tel:[phone] Referring Provider: Juan Scott, [address] [place] [address] [address], [place], [facility]. tel:[phone], [place], [place], [address], [place] tel:[phone] [facility] No Information Hou Molly. [address] [facility], [address], [place], [facility], . tel:[phone] Referring Provider: Juan Scott, [address] [place] [address] [address], [place], [facility]. tel:[phone], [place], [place], [address], [place] tel:[phone] [facility] No Information Hou Molly. [address] [facility], [address], [place], [facility], [place]. tel:[phone] Referring Provider: Juan Scott, [address] [place] [address] [address], [place], [address]. tel:[phone], [place], [place], [address], [place] tel:[phone] [facility] No Information Hou Molly. [address] [facility], [address], [place], [facility], . tel:[phone] Referring Provider: Juan Scott, [address] [place] [address] [address], [place], [address]. tel:[phone], [place], [place], [address], [place] tel:[phone] [facility] No Information Hou Molly. [address] [facility], [address], [place], [address], [place]. tel:[phone] Referring Provider: Juan Scott, [address] [place] [address] [address], [place], [address]. tel:[phone] [address], [place], [place], [address], tel:[phone] [facility] No Information Hou Molly. [address] [facility], [address], [place], [address], [place]. tel:[phone] Referring Provider: Juan Scott, [address] [place] [address] [address], [place], [address]. tel:[phone] [address], [place], [place], [address], [place] tel:[phone] [facility] No Information Hou Molly. [address] [facility], [address], [place], [address], [place]. tel:[phone] Referring Provider: Juan Scott, [address] [place] [address] [address], [place], [address]. tel:[phone] [address], [place], [place], [address], [place] tel:[phone] [facility] No Information Hou Molly. [address] [facility], [address], [place], [address], [place]. [phone] Referring Provider: Juan Scott [address] [place] [address] [address], [place], [address]. tel:[phone] [address], [place], [place], [address], tel:[phone] [facility] No Information Hou Molly. [address] [facility], [address], [place], [address], [place]. [phone] Referring Provider: Juan Scott, [address] [place] [address] [address], [place], [address]. tel:[phone], [place], [place], [address], [place] tel:[phone] [facility] No Information Hou Molly. [address] [facility], [address], [place], [facility], [place]. [phone] Referring Provider: Juan Scott, [address] [place] [address] [address], [place], [address]. tel:[phone], [place], [place], [address], [place] tel:[phone] [facility] No Information Hou Molly. [address] [facility], [address], [place], [facility], [place]. tel:[phone] Referring Provider: Juan Scott, [address] [place] [address] [address], [place], [address]. tel:[phone], [place], [place], [address], [place] tel:[phone] [facility] No Information Hou Molly. [address] [facility], [address], [place], [address], [place]. [phone] Referring Provider: Juan Scott [address] [place] [address] [address], [place], [address]. tel:[phone], [place], [place], [address], [place] tel:[phone] [facility] No Information Hou Molly. [address] [facility], [address], [place], [facility], [place]. [phone] Referring Provider: Juan Scott [address] [place] [address] [address], [place], [address]. tel:[phone], [place], [place], [address], [place] tel:[phone] [facility] No Information Hou Molly. [address] [facility], [address], [place], [address], [place]. tel:[phone] Referring Provider: Juan Scott, [address] [place] [address] [address], [place], [address]. tel:[phone], [place], [place], [address], [place] tel:[phone] [facility] No Information Hou Molly. [address] [facility], [address], [place], [facility], [place]. tel:[phone] Referring Provider: Juan Scott, [address] [place] [address] [address], [place], [address]. tel:[phone], [place], [place], [address], [place] tel:[phone] [facility] No Information Mojgan Sahni. [address] [facility], [address], [place], [address], [place]. [phone] Referring Provider: Juan Scott, [address] [place] [address] [address], [place], [address]. tel:[phone], [place], [place], [address], [place] tel:[phone] [facility] No Information Hou Molly. [address] [facility], [address], [place], [address], [place]. [phone] Referring Provider: Juan Scott, [address] [place] [address] [address], [place], [address]. tel:[phone], [place], [place], [address], [place] tel:[phone] [facility] Pain in joint involving lower leg Ricardo Mejnivar. . Referring Provider: Juan Scott, [address] [facility] [address], [place], [address]. tel:[phone] Family History Family Member Type Diagnosis Age At Onset No Information Payers Payer name Insurance type Covered libertarian ID Authoriza connor(s) [facility] Ross VALE [id number] Social History Type Description Quantity Date Captured Comments Sex Female Smoking Status No Information Chief Complaint And Reason For Visit No Information Reason For Referral Reason For Referral No Information History Of Present Illness Encounter Date Complaint History Of Prese nt Illness No Information Functional Status Date Functional Assessmen t No Information Instructions Date Instruction Additional Infor mation No Information Assessments Type Assessment Date No Information Patient Care Teams Name Effective Dates (start - stop) Status Members No Information
--- OUTSIDE RECORDS SUMMARY | 2015-01-10 08:38 | XMS_ITS | Continuity of Care Document ---
Author Organization [employer] [facility] Address [address] [place] [address] [address] [place] [address] Phone Care Team Providers Care Wildlife Rehabilitator Name Role Phone Alberto eRed DPT Unavailable Unavailable Procedures Procedure Date THERAPEUTIC [...] Diagnoses Date Provider Providers Copied on Encounter [address], [id number], tel:[phone] [facility] No Information Brianna Dominguez. [address] [facility], [facility] [address], [place], [facility], . tel:[phone] [address] [address], [place], [id number], tel:[phone] [facility] No Information Brianna Dominguez. [address] [facility], [facility] [address], [place], [facility], [place]. tel:[phone] Referring Provider: Juan Scott, [address] [facility] [address], [place], [address]. tel:[phone], [place], [id number], tel:[phone] [facility] No Information Brianna Dominguez. [address] [facility], [address], [place], [facility], [place]. tel:[phone] Referring Provider: Juan Scott, [address] [facility] [address], [place], [address]. tel:[phone], [place], [place], [id number], tel:[phone] [facility] No Information Brianna Dominguez. [address] [facility], [address], [place], [address], [place]. tel:[phone] Referring Provider: Jaun Scott, [address] [place] [address] [address], [place], [address]. tel:[phone] [address], [place], [place], [address], [place] tel:[phone] [facility] Pain in left kneeMuscle weakness (generalized)Un specified abnormalities of gait and mobility Brianna Dominguez. [address] [facility], [address], [place], [facility], [place]. tel:[phone] Referring Provider: Juan Scott, [address] [place] [address] [address], [place], [address]. tel:[phone] [address], [place], [place], [id number], [place] tel:[phone] [facility] No Information Brianna Dominguez. [address] [facility], [address], [place], [address], [place]. tel:[phone] Referring Provider: Juan Scott [address] [place] [address] [address], [place], [address]. tel:[phone] [address] [address], [place], [id number], [place] tel:[phone] [facility] No Information Brianna Dominguez. [address] [facility], [address], [place], [address], [place]. tel:[phone] Referring Provider: Juan Scott [address] [place] [address] [address], [place], [address]. tel:[phone], [place], [place], [address], [place] tel:[phone] [facility] No Information Brianna Dominguez. [address] [facility], [address], [place], [address], [place]. tel:[phone] Referring Provider: Juan Scott, [address] [place] [address] [address], [place], [address]. tel:[phone], [place], [place], [address], [place] tel:[phone] [facility] No Information Brianna Dominguez. [address] [facility], [address], [place], [address], [place]. tel:[phone] Referring Provider: Juan Scott [address] [place] [address] [address], [place], [address]. tel:[phone], [place], [place], [address], [place] tel:[phone] [facility] No Information Brianna Dominguez. [address] [facility], [address], [place], [address], [place]. tel:[phone] Referring Provider: Juan Scott, [address] [place] [address] [address], [place], [address]. tel:[phone], [place], [place], [address], [place] tel:[phone] [facility] No Information Jennifer Cerda. [address] [facility], [address], [place], [address], [place]. tel:[phone] Referring Provider: Juan Scott, [address] [place] [address] [address], [place], [address]. tel:[phone], [place], [place], [id number], [place] tel:[phone] [facility] No Information Rodriguez Zaida. [address] [facility], [address], [place], [address], [place]. tel:[phone] Referring Provider: Juan Scott [address] [place] [address] [address], [place], [address]. tel:[phone] [address], [place], [place], [address], [place] tel:[phone] [facility] No Information Rodriguez Zaida. [address] [facility], [address], [place], [address], [place]. [phone] Referring Provider: Juan Scott, [address] [place] [address] [address], [place], [address]. tel:[phone] [address], [place], [place], [address], [place] tel:[phone] [facility] No Information Hou Molly. [address] [facility], [address], [place], [address], [place]. tel:[phone] Referring Provider: Juan Scott [address] [place] [address] [address], [place], [address]. tel:[phone], [place], [place], [address], [place] tel:[phone] [facility] No Information Hou Molly. [address] [facility], [address], [place], [address], [place]. tel:[phone] Referring Provider: Juan Scott [address] [place] [address] [address], [place], [address]. tel:[phone], [place], [place], [address], [place] tel:[phone] [facility] No Information Hou Molly. [address] [facility], [address], [place], [address], [place]. tel:[phone] Referring Provider: Juan Scott, [address] [place] [address] [address], [place], [address]. tel:[phone], [place], [place], [address], tel:[phone] [facility] No Information Hou Molly. [address] [facility], [address], [place], [facility], [place]. tel:[phone] Referring Provider: Juan Scott [address] [place] [address] [address], [place], [address]. tel:[phone], [place], [place], [address], tel:[phone] [facility] No Information Hou Molly. [address] [facility], [address], [place], [facility], [place]. tel:[phone] Referring Provider: Juan Scott [address] [place] [address] [address], [place], [address]. tel:[phone], [place], [place], [address], [place] tel:[phone] [facility] No Information Hou Molly. [address] [facility], [address], [place], [facility], [place]. tel:[phone] Referring Provider: Juan Scott [address] [place] [address] [address], [place], [address]. tel:[phone], [place], [place], [id number], [place] tel:[phone] [facility] No Information Hou Molly. [address] [facility], [address], [place], [facility], [place]. tel:[phone] Referring Provider: Juan Scott [address] [place] [address] [address], [place], [address]. tel:[phone], [place], [place], [address], [place] tel:[phone] [facility] No Information Hou Molly. [address] [facility], [address], [place], [facility], . tel:[phone] Referring Provider: Juan Scott, [address] [place] [address] [address], [place], [facility]. tel:[phone], [place], [place], [address], [place] tel:[phone] [facility] No Information Hou Molly. [address] [facility], [address], [place], [facility], . tel: [phone] Referring Provider: Juan Scott, [address] [place] [address] [address], [place], [facility]. tel:[phone], [place], [place], [address], [place] tel:[phone] [facility] No Information Hou Molly. [address] [facility], [address], [place], [facility], [place]. tel:[phone] Referring Provider: Juan Scott, [address] [place] [address] [address], [place], [address]. tel:[phone], [place], [place], [address], [place] tel:[phone] [facility] No Information Hou Molly. [address] [facility], [address], [place], [facility], . tel:[phone] Referring Provider: Juan Scott, [address] [place] [address] [address], [place], [address]. tel:[phone], [place], [address], [place] tel:[phone] [facility] No Information Hou Molly. [address] [facility], [address], [place], [address], [place]. tel:[phone] Referring Provider: Juan Scott, [address] [place] [address] [address], [place], [address]. tel:[phone] [address], [place], [place], [address], tel:[phone] [facility] No Information Hou Molly. [address] [facility], [address], [place], [address], [place]. tel:[phone] Referring Provider: Juan Scott, [address] [place] [address] [address], [place], [address]. tel:[phone] [address], [place], [place], [address], [place] tel:[phone] [facility] No Information Hou Molly. [address] [facility], [address], [place], [address], [place]. tel:[phone] Referring Provider: Juan Scott, [address] [place] [address] [address], [place], [address]. tel:[phone] [address], [place], [place], [address], [place] tel:[phone] [facility] No Information Hou Molly. [address] [facility], [address], [place], [address], [place]. [phone] Referring Provider: Juan Scott [address] [place] [address] [address], [place], [address]. tel:[phone] [address], [place], [place], [address], tel:[phone] [facility] No Information Hou Molly. [address] [facility], [address], [place], [address], [place]. [phone] Referring Provider: Juan Scott, [address] [place] [address] [address], [place], [address]. tel:[phone], [place], [place], [address], [place] tel:[phone] [facility] No Information Hou Molly. [address] [facility], [address], [place], [facility], [place]. [phone] Referring Provider: Juan Scott, [address] [place] [address] [address], [place], [address]. tel:[phone], [place], [place], [address], [place] tel:[phone] [facility] No Information Hou Molly. [address] [facility], [address], [place], [facility], [place]. tel:[phone] Referring Provider: Juan Scott, [address] [place] [address] [address], [place], [address]. tel:[phone], [place], [place], [address], [place] tel:[phone] [facility] No Information Hou Molly. [address] [facility], [address], [place], [address], [place]. [phone] Referring Provider: Juan Scott [address] [place] [address] [address], [place], [address]. tel:[phone], [place], [place], [address], [place] tel:[phone] [facility] No Information Hou Molly. [address] [facility], [address], [place], [facility], [place]. [phone] Referring Provider: Juan Scott [address] [place] [address] [address], [place], [address]. tel:[phone], [place], [place], [address], [place] tel:[phone] [facility] No Information Hou Molly. [address] [facility], [address], [place], [address], [place]. tel:[phone] Referring Provider: Juan Scott, [address] [place] [address] [address], [place], [address]. tel:[phone], [place], [place], [address], [place] tel:[phone] [facility] No Information Hou Molly. [address] [facility], [address], [place], [facility], [place]. tel:[phone] Referring Provider: Juan Scott, [address] [place] [address] [address], [place], [address]. tel:[phone], [place], [place], [address], [place] tel:[phone] [facility] No Information Mojgan Sahni. [address] [facility], [address], [place], [address], [place]. [phone] Referring Provider: Juan Scott, [address] [place] [address] [address], [place], [address]. tel:[phone], [place], [place], [address], [place] tel:[phone] [facility] No Information Hou Molly. [address] [facility], [address], [place], [address], [place]. [phone] Referring Provider: Juan Scott, [address] [place] [address] [address], [place], [address]. tel:[phone], [place], [place], [address], [place] tel:[phone] [facility] Pain in joint involving lower leg Ricardo Menjivar. . Referring Provider: Juan Scott, [address] [facility] [address], [place], [address]. tel:[phone] Family History Family Member Type Diagnosis Age At Onset No Information Payers Payer name Insurance type Covered democrat ID Authoriza connor(s) [facility] Ross VALE [id number] Social History Type Description Quantity Date Captured [...]
--- OUTSIDE RECORDS SUMMARY | 2015-01-10 08:38 | XMS_ITS | Continuity of Care Document ---
Author Organization [facility] Address [address] [place] [address] [address] [place] [address] Phone Care Team Providers Care [employer] [employer] Specialist Name Role Phone Alberto Reed DPT Unavailable [...] Diagnoses Date Provider Providers Copied on Encounter [address], [id number], tel:[phone] [facility] No Information Brianna Dominguez. [address] [facility], [facility] [address], [place], [facility], . tel:[phone] [address] [address], [place], [id number], tel:[phone] [facility] No Information Brianna Dominguez. [address] [facility], [facility] [address], [place], [facility], [place]. tel:[phone] Referring Provider: Juan Scott, [address] [facility] [address], [place], [address]. tel:[phone] [address], [place], [id number], tel:[phone] [facility] No Information Brianna Dominguez. [address] [facility], [address], [place], [place], [facility], [place]. tel:[phone] Referring Provider: Juan Scott, [address] [facility] [address], [place], [address]. tel:[phone], [place], [place], [id number], tel:[phone] [facility] No Information Brianna Dominguez. [address] [facility], [address], [place], [address], [place]. tel:[phone] Referring Provider: Juan Scott, [address] [place] [address] [address], [place], [address]. tel:[phone] [address], [place], [place], [address], [place] tel:[phone] [facility] Pain in left kneeMuscle weakness (generalized)Un specified abnormalities of gait and mobility Brianna Dominguez. [address] [facility], [address], [place], [facility], [place]. tel:[phone] Referring Provider: Juan Scott, [address] [place] [address] [address], [place], [address]. tel:[phone] [address], [place], [place], [id number], [place] tel:[phone] [facility] No Information Brianna Dominguez. [address] [facility], [address], [place], [address], [place]. tel:[phone] Referring Provider: Juan Scott [address] [place] [address] [address], [place], [address]. tel:[phone] [address] [address], [place], [address], [place] tel:[phone] [facility] No Information Brianna Dominguez. [address] [facility], [address], [place], [address], [place]. tel:[phone] Referring Provider: Juan Scott [address] [place] [address] [address], [place], [address]. tel:[phone], [place], [place], [address], [place] tel:[phone] [facility] No Information Brianna Dominguez. [address] [facility], [address], [place], [address], [place]. tel:[phone] Referring Provider: Juan Scott, [address] [place] [address] [address], [place], [address]. tel:[phone], [place], [place], [id number], [place] tel:[phone] [facility] No Information Brianna Dominguez. [address] [facility], [address], [place], [address], [place]. tel:[phone] Referring Provider: Juan Scott [address] [place] [address] [address], [place], [address]. tel:[phone], [place], [place], [address], [place] tel:[phone] [facility] No Information Brianna Dominguez. [address] [facility], [address], [place], [address], [place]. tel:[phone] Referring Provider: Juan Scott, [address] [place] [address] [address], [place], [address]. tel:[phone], [place], [place], [address], [place] tel:[phone] [facility] No Information Jennifer Cerda. [address] [facility], [address], [place], [address], [place]. tel:[phone] Referring Provider: Juan Scott, [address] [place] [address] [address], [place], [address]. tel:[phone], [place], [place], [address], [place] tel:[phone] [facility] No Information Rodriguez Zaida. [address] [facility], [address], [place], [address], [place]. tel:[phone] Referring Provider: Juan Scott [address] [place] [address] [address], [place], [address]. tel:[phone] [address], [place], [place], [address], [place] tel:[phone] [facility] No Information Rodriguez Zaida. [address] [facility], [address], [place], [address], [place]. [phone] Referring Provider: Juan Scott, [address] [place] [address] [address], [place], [address]. tel:[phone] [address], [place], [place], [address], [place] tel:[phone] [facility] No Information Hou Molly. [address] [facility], [address], [place], [address], [place]. tel:[phone] Referring Provider: Juan Scott [address] [place] [address] [address], [place], [address]. tel:[phone], [place], [place], [address], [place] tel:[phone] [facility] No Information Hou Molly. [address] [facility], [address], [place], [address], [place]. tel:[phone] Referring Provider: Juan Scott [address] [place] [address] [address], [place], [address]. tel:[phone], [place], [place], [address], [place] tel:[phone] [facility] No Information Hou Molly. [address] [facility], [address], [place], [address], [place]. tel:[phone] Referring Provider: Juan Scott, [address] [place] [address] [address], [place], [address]. tel:[phone], [place], [place], [address], tel:[phone] [facility] No Information Hou Molly. [address] [facility], [address], [place], [facility], [place]. tel:[phone] Referring Provider: Juan Scott [address] [place] [address] [address], [place], [address]. tel:[phone], [place], [place], [id number], tel:[phone] [facility] No Information Hou Molly. [address] [facility], [address], [place], [facility], [place]. tel:[phone] Referring Provider: Juan Scott [address] [place] [address] [address], [place], [address]. tel:[phone], [place], [place], [address], [place] tel:[phone] [facility] No Information Hou Molly. [address] [facility], [address], [place], [facility], [place]. tel:[phone] Referring Provider: Juan Scott [address] [place] [address] [address], [place], [address]. tel:[phone], [place], [place], [address], [place] tel:[phone] [facility] No Information Hou Molly. [address] [facility], [address], [place], [facility], [place]. tel:[phone] Referring Provider: Juan Scott [address] [place] [address] [address], [place], [address]. tel:[phone], [place], [place], [address], [place] tel:[phone] [facility] No Information Hou Molly. [address] [facility], [address], [place], [facility], . tel:[phone] Referring Provider: Juan Scott, [address] [place] [address] [address], [place], [facility]. tel:[phone], [place], [place], [address], [place] tel:[phone] [facility] No Information Hou Molly. [address] [facility], [address], [place], [facility], . tel:[phone] Referring Provider: Juan Scott, [address] [place] [address] [address], [place], [facility]. tel:[phone], [place], [place], [address], [place] tel:[phone] [facility] No Information Hou Molly. [address] [facility], [address], [place], [facility], [place]. tel:[phone] Referring Provider: Juan Scott, [address] [place] [address] [address], [place], [address]. tel:[phone], [place], [place], [address], [place] tel:[phone] [facility] No Information Hou Molly. [address] [facility], [address], [place], [facility], . tel:[phone] Referring Provider: Juan Scott, [address] [place] [address] [address], [place], [address]. tel:[phone], [place], [place], [address], [place] tel:[phone] [facility] No Information Hou Molly. [address] [facility], [address], [place], [address], [place]. tel:[phone] Referring Provider: Juan Scott, [address] [place] [address] [address], [place], [address]. tel:[phone] [address], [place], [place], [address], tel:[phone] [facility] No Information Hou Molly. [address] [facility], [address], [place], [address], [place]. tel:[phone] Referring Provider: Juan Scott, [address] [place] [address] [address], [place], [address]. tel:[phone] [address], [place], [place], [address], [place] tel:[phone] [facility] No Information Hou Molly. [address] [facility], [address], [place], [address], [place]. tel:[phone] Referring Provider: Juan Scott, [address] [place] [address] [address], [place], [address]. tel:[phone] [address], [place], [place], [address], [place] tel:[phone] [facility] No Information Hou Molly. [address] [facility], [address], [place], [address], [place]. [phone] Referring Provider: Juan Scott [address] [place] [address] [address], [place], [address]. tel:[phone] [address], [place], [place], [address], tel:[phone] [facility] No Information Hou Molly. [address] [facility], [address], [place], [address], [place]. [phone] Referring Provider: Juan Scott, [address] [place] [address] [address], [place], [address]. tel:[phone], [place], [place], [address], [place] tel:[phone] [facility] No Information Hou Molly. [address] [facility], [address], [place], [facility], [place]. [phone] Referring Provider: Juan Scott, [address] [place] [address] [address], [place], [address]. tel:[phone], [place], [place], [address], [place] tel:[phone] [facility] No Information Hou Molly. [address] [facility], [address], [place], [facility], [place]. tel:[phone] Referring Provider: Juan Scott, [address] [place] [address] [address], [place], [address]. tel:[phone], [place], [place], [address], [place] tel:[phone] [facility] No Information Hou Molly. [address] [facility], [address], [place], [address], [place]. [phone] Referring Provider: Juan Scott [address] [place] [address] [address], [place], [address]. tel:[phone], [place], [address], [place] tel:[phone] [facility] No Information Hou Molly. [address] [facility], [address], [place], [facility], [place]. [phone] Referring Provider: Juan Scott [address] [place] [address] [address], [place], [address]. tel:[phone], [place], [place], [address], [place] tel:[phone] [facility] No Information Hou Molly. [address] [facility], [address], [place], [address], [place]. tel:[phone] Referring Provider: Juan Scott, [address] [place] [address] [address], [place], [address]. tel:[phone], [place], [place], [address], [place] tel:[phone] [facility] No Information Hou Molly. [address] [facility], [address], [place], [facility], [place]. tel:[phone] Referring Provider: Juan Scott, [address] [place] [address] [address], [place], [address]. tel:[phone], [place], [place], [address], [place] tel:[phone] [facility] No Information Mojgan Sahni. [address] [facility], [address], [place], [address], [place]. [phone] Referring Provider: Juan Scott, [address] [place] [address] [address], [place], [address]. tel:[phone], [place], [place], [address], [place] tel:[phone] [facility] No Information Hou Molly. [address] [facility], [address], [place], [address], [place]. [phone] Referring Provider: Juan Scott, [address] [place] [address] [address], [place], [address]. tel:[phone], [place], [place], [address], [place] tel:[phone] [facility] Pain in joint involving lower leg Ricardo Mejnivar. . Referring Provider: Juan Scott, [address] [facility] [address], [place], [address]. tel:[phone] Family History Family Member Type Diagnosis Age At Onset No Information Payers Payer name Insurance type Covered democrat ID Authoriza connor(s) [facility] Ross VALE [id number] Social History Type Description Quantity Date Captured [...]
--- NOTE | ~2025-01-06 | XR_ITS ---
Examination: XR foot RT min 3V Clinical History: injury Comparison: None Technique: 3 views right foot Findings/impression: 1. Displaced fracture fifth metatarsal base. 2. No other acute abnormality identified. Reviewed, dictated and finalized at location R. [facility]
[2025-01-06 12:10] VITALS: BP 129/76; PULSE 100; RESP 16; TEMP 36.6; O2SAT 100
--- NOTE | 2025-01-06 12:22 | ED.LOWEXIN ---
HPI - Extremity Injury (Lower) General Chief Complaint: Extremity Injury, Lower Stated Complaint: R FOOT INJURY Time Seen by Provider: 01/06/25 12:15 Source: patient Mode of arrival: wheelchair Limitations: no limitations History of Present Illness HPI Narrative: This is a 24-year-old female with no significant past medical history presents the ED for a right foot injury. Patient states she was stepping down from a shed when she felt a pop in her foot. Denies hitting her head. She has not been able walk since the incident. She has severe pain to the lateral aspect of her right foot. Related Data Allergies Allergy/AdvReac Type Severity Reaction Status Date / Time doxycycline Allergy Intermediate esophogitis Verified 01/06/25 12:09 Review of Systems Review of Systems: Gen.: Denies fevers or chills Eyes: Denies eye pain or visual change ENT: Denies congestion Respiratory: Denies shortness of breath or cough CV: Denies chest pain or palpitations GI: Denies abdominal pain nausea, emesis or diarrhea denies burning, urgency, frequency or hematuria Musculoskeletal: As per HPI Neuro: Denies numbness, tingling, weakness or focal weakness Skin: Denies rash Except as documented, all other systems reviewed and negative PMFSH Past Medical History Medical History No pertinent past medical history Surgical History Surgical History History of laparoscopic appendectomy 02/24/23 [facility] History of right knee surgery Right knee scope History of wisdom tooth extraction History of placement of ear tubes Family History Family History Mother Diabetes mellitus Grandparent Cancer Social History Social History Smoking status: Never smoker Alcohol intake: current Substance use: former Substance use type: marijuana Living arrangements: with family Occupation/Education: student Additional occupation/education comments: [employer] Exam Narrative: APPEARANCE: No acute distress, nontoxic, resting in bed HEENT: Normocephalic, atraumatic, OMM RESPIRATORY: No respiratory distress CARDIOVASCULAR: Appears well perfused ABDOMINAL: Nondistended MUSCULOSKELETAl: Tenderness and deformity over the right proximal 5th metatarsal NEURO: Awake and alert. SKIN:: Warm, dry. No rashes lesions or abrasions PSYCHIATRIC: Normal affect/mood, Course Vital Signs Vital signs: Vital Signs Temperature 97.8 F 01/06/25 12:10 Pulse Rate 100 01/06/25 12:10 Respiratory Rate 16 01/06/25 12:10 Blood Pressure 129/76 01/06/25 12:10 Pulse Oximetry 100 01/06/25 12:10 Temperature 97.8 F 01/06/25 12:10 Pulse Rate 100 01/06/25 12:10 Respiratory Rate 16 01/06/25 12:10 Blood Pressure 129/76 01/06/25 12:10 Pulse Oximetry 100 01/06/25 12:10 MDM - Extremity Injury (Lower) MDM Narrative Medical decision making narrative: 24-year-old female Presenting for right foot injury. On initial evaluation patient was in no acute distress afebrile, hemodynamic stable. Differentials include but are not limited to: Fracture, sprain, strain, contusion Notable exam findings: Tenderness and deformity to the right 5th proximal metatarsal, neurovascularly intact distally I personally reviewed the patient's images and interpret as follows: Displaced proximal avulsion fracture to the 5th metatarsal Patient was given Toradol with significant improvement of her pain. Splint was placed by the emergency department geotechnicial properties technician under my supervision. The patient was neurovascularly intact both pre-and post procedure. Case was discussed with Dr. Zarco, orthopedic surgery, will see the patient outpatient, agreed with splinting. Patient was deemed appropriate for discharge at this time. Patient was educated on Tylenol and ibuprofen use. Patient was advised follow-up with orthopedic surgery in the next week for re-evaluation. Patient was agreeable to this plan. Given strict return precautions. Medical Records Attestation: I reviewed the patient's medical records. Discharge Plan Discharge Clinical Impression: Fracture of fifth metatarsal bone of right foot Qualifiers: Encounter type: initial encounter Fracture type: closed Fracture alignment: displaced Qualified Code(s): S92.351A - Displaced fracture of fifth metatarsal bone, right foot, initial encounter for closed fracture Patient Disposition: Home Condition: Stable Instructions: Antibiotic Form Additional Instructions: Take Tylenol and ibuprofen for your pain. You should remain nonweightbearing until evaluation by Orthopedic surgery, Dr. Zarco. Return to the ED for any new or worsening symptoms. Patient Language: Panamanian Follow-up/Referrals: PHYSICIAN,FLUTE GRINDER [Primary Care Provider, Internal Medicine] Lanre Zarco MD [Physician, Orthopedics]
--- OUTSIDE RECORDS SUMMARY | 2025-01-06 12:30 | XMS_ITS | Data Portability ---
Author Organization [facility] Address [address] [place] [address] Care Team Providers Care Senior Benefits Analyst Name Role Phone LUIS HILL Primary Care Provider [phone] Assessment No assessment recorded. Plan of Treatment Reminders Order Date Submit Date Provider Last Modified By Organization Details Last Modified Time Details Appointments None recorded. Lab None recorded. Referral None recorded. Procedures None recorded. Surgeries None recorded. Imaging None recorded. Medication Orders Lo Loestrin Fe 1 mg-10 mcg (24)/10 mcg (2) tablet 2021 022 [facility]/Pharmacy #[id number], [address] [place], [address], 10:38:42 Patient TargetsNo targets recorded. Patient InstructionsNo instructions recorded. Reason for Referral None Reported. Results Created Date Observation Date Name Description Value Unit Range Abnormal Flag Note LastModifiedBy Organization Detail LastModifiedTime 05/07/19 22 05/06/2021 IMAGE GUIDE D PAP, REFLE X HPV IF ASCUS ONLY image guided Pap, reflex HPV ASCUS only SEE RESULT S BELOW CASE REPOR T: Cytol ogy Gynec ologi yenny Repor t Case: [id number] Autho evangelina mahoney Provi violeta: Angel Skaggs Colle cted: 05/06 1309 RIPENING ROOM HAND Order ing Locat ion: [place] Path[facility] Recei checo: 05/07 0858 First Scree n: Frase r, Joanna , [place] Speci men: Scree lefty Pap - Image d, Cervi x STATE MENT OF ADEQU ACY: Satis facto ry for evalu ation Trans forma tion zone compo nent prese nt FINAL DIAGN OSIS: Negat margarette for Intra epith elial Lesio n or Lo arce (NIL) . Elect drea branham bart d by Joanna Yan , [place] on 2021 at 6:45 AM ----- ----- ----- ----- ----- ----- ----- ----- ----- ----- ----- ----- ----- ----- ----- ----- ----- ---- COMME NT: Note: This speci men was revie wed by a Cytot echno logis t and/o r Patho logis t (as indic ated in this repor t) after evalu ation using the Thinp rep Imagi ng Syste m. CLINI YENNY INFOR MATIO N: Menst rual Statu s: LMP (if appli cable ): Clini yenny Histo ry/Pr eviou s Pap: Type of Neopl christiano (if appli cable ): Signi fican t Clini yenny Findi ngs: Other Histo ry: Hormo megan (if appli cable ): PAP EDUCA FRANCIA L NOTE: The Pap Test is a scree lefty test with an inher ent false negat margarette rate. Liqui d-bas ed sampl ing may decre ase, but will not elimi onra, false negat margarette resul ts. A negat margarette resul t does not precl ude the prese nce and/o r devel opmen t of disea se, since the prese nce of abnor mal cells in the sampl e depen ds on the locat ion of the lesio n and sampl ing techn ique. Taisha nued regul ar scree lefty is the best metho d of cance r preve ntion . If repor cedric cytol ogic findi ng do not corre late with physi yenny and/o r histo rical findi ngs, furth er inves tigat ion is recom aarti d, as clini catalina orellana nted. Not Available [facility] (Lab) [address], [place], [address], 05/14/2021 07:47:41 05/07/19 22 05/06/2021 TRICH OMONA S VAGIN LIZBETH (RRNA ) trichomonas vaginalis ribosomal RNA (rrna) Negati ve negati ve Not Available [facility] (Lab) [address], [place], [address], 05/14/2021 07:47:42 05/07/19 22 05/06/2021 CT/GC (JAEL) , THINP REP VIAL chlamydia trachomatis, PCR Negati ve negati ve Not Available [facility] (Lab) [address], [place], [address], 05/14/2021 07:47:42 05/07/19 22 05/06/2021 CT/GC (JAEL) , THINP REP VIAL neisseria gonorrhoeae, PCR Negati ve negati ve Not Available [facility] (Lab) [address], [place], [address], 05/14/2021 07:47:42 Result Notes None recorded. Medical Equipment None Reported. Allergies No known drug allergies Medications Name Sig Start Date Stop Date Status Note LastModified by Organization Details LastModified Time azithromyci n 250 mg tablet 05/06 completed Not Available Not Available Not Available prednisone 20 mg tablet 05/06 completed Not Available Not Available Not Available penicillin V potassium 500 mg tablet 05/06 completed Not Available Not Available Not Available dextroamphe tamine-amph etamine ER 20 mg 24hr capsule,ext end release TAKE 1 CAPSULE BY MOUTH EVERY DAY IN THE MORNING active Not Available Not Available No t Available ondansetron 4 mg disintegrat ing tablet 05/06 completed Not Available Not Available Not Available nitrofurant oin monohydrate /macrocryst als 100 mg capsule 05/06 completed Not Available Not Available Not Available Lo Loestrin Fe 1 mg-10 mcg (24)/10 mcg (2) tablet TAKE 1 TABLET BY MOUTH EVERY DAY 2022 active Not Available Not Available Not Avai lable ID NOW COVID-19 Test Kit DIRECTED 05/06 completed Not Available Not Available Not Available Vitals Date Recorded Body height Body mass index (BMI) Body weight Systolic And Diastolic Provider Name and Address Organization Details Last Updated DateTime 05/06/2021 159.39 cm 23.7 kg/m2 16871.79 g 112/72 mm[Hg] Kari Haynes [facility] 05/06/2021 10:19:05 Social History Question Answer Notes LastModified by Organizat ion Details LastModified Time Tobacco Smoking Status Never Smoker Kari Haynes [facility], [facility] 05/06/2021 10:24:19 Do You Have An Advance Directive? No Information n ot available 05/06/2021 How Many Years Have You Consumed Alcohol? 4 Information not available 05/06/2021 Are You Blind Or Do You Have Difficulty Seeing? No Information n ot available 05/06/2021 What Is Your Level Of Caffeine Consumption? Heavy Information not available 05/06/2021 In The 14 Days Before Symptom Onset, Have You Had Close Contact With A Laboratory-confirm ed COVID-19 While That Case Was Ill? No Information n ot available 05/06/2021 In The 14 Days Before Symptom Onset, Have You Had Close Contact With A Person Who Is Under Investigation For COVID-19 While That Person Was Ill? No Information not available 05/06/2021 Have You Been To An Area Known To Be High Risk For COVID-19? No Information not available 05/06/2021 Are You Deaf Or Do You Have Serious Difficulty Hearing? No Information not available 05/06/2021 What Type Of Diet Are You Following? REGULAR Information n ot available 05/06/2021 What Is The Highest Grade Or Level Of School You Have Completed Or The Highest Degree You Have Received? [id number] Information not available 05/06/2021 Are There Any Guns Present In Your Home? Yes Information not available 05/06/2021 Do You Use Protection During Sex? Usually Information not available 05/06/2021 Do You Use Your Seat Belt Or Car Seat Routinely? Yes Information not available 05/06/2021 Do You Have Smoke And Carbon Monoxide Detectors In Your Home? Yes Information not available 05/06/2021 How Much Tobacco Do You Smoke? No Information not available 05/06/2021 Do You Use Sunscreen Routinely? Yes Information not available 05/06/2021 Have You Used IV Drugs? No Information not available 05/06/2021 Do You Have Difficulty Walking Or Climbing Stairs? No Information not available 05/06/2021 Sex: Unknown Functional Status Question Answer Note LastModified by Organizat ion Details LastModified Time Do you use any illicit or recreational drugs? No Information not available 05/06/2021 What is your level of alcohol consumption? Occasional Information not available 05/06/2021 Are you able to walk independently without assistance or assistive devices? YESWOREST Information not available 05/06/2021 Are you able to care for yourself independently? 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 No Information not available 05/06/2021 What is your exercise level? Occasional Information not available 05/06/2021 Mental Status Question Answer Note LastModified by Organization D etails LastModified Time Do you feel stressed (tense, restless, nervous, or anxious, or unable to sleep at night)? [id number] Information not available 05/06/2021 Family History Relationship Description Onset Age of this Age Resolved Age Notes LastModified by Organization Details LastModified Time Maternal Grandfather Malignant neoplasm of lung Not available 2021 10:23:32 Maternal Grandfather Malignant neoplasm of liver Not available 2021 10:23:43 Medical History Condition Response No Past Medical History Y Gynecological History Statement/Question Response Flow Moderate Date of LMP 04/11/2021 On BCP's at Conception? N N Was last menstrual period normal Y STIs/STDs N HPV Vaccine N Duration of Flow (days) 5 Current Control Method Condoms Date of control 01/25/2021 Are cycles usually normal Y Frequency of Cycle (Q days) 8 Sexually Active? Y BCPs Menses Monthly Y Age of first menstrual cycle 9 Date of Last Pap Smear Sexual Problems? N Desired Control Method BCPs LMP Approximate N Obstetrics History GPAL:G 0 P 0 0 0 0 Type Value Living 0 Total 0 Past Encounters Encounter ID Performer Location Encounter Start Date Encounter Closed Date Diagnosis/Indication Diagnosis SNOMED-CT Code Diagnosis ICD10 Code Diagnosis IMO Codes Diagnosis Note [id number] [facility] [address] [address] 05/06/2021 10:00:28 05/06/2021 10:48:39 Gynecologic examination [id number] Z01.419 Take Calcium with Vitamin D 1200mg daily if not receiving in daily diet. It is strongly advised to have an annual flu shot and up can obtain at most pharmacies . If you have not had a TDap shot in the last 10 years you should obtain one as well. Discussed with patient & provided with informatio n regarding Gardisil vaccine to prevent the 4 strains for HPV that cause cervical cancer if under age 26. Encourage safe sexual practices, to use condoms and limit partners if not already in a monogamous relationsh ip. Do monthly self breast exams. Have mammogram yearly or every other year depending on family history. BRCA testing is now available for patients with strong genetic history of female cancer. If interested contact the office. Engage in daily exercise of low impact aerobic exercise 45-60 minutes 4-5 times weekly. Avoid tobacco and illicit drugs as well as using moderation with alcohol intake less than 1-2 8 oz beverages daily. This lifestyle behavior pattern will lead to less health conditions and longer life span. If BMI greater than 25 weight watchers or dietary consult advised. Patient received above instructio ns, and questions have been answered. If you have any questions please call or respond to this email. Patient was made aware of the patient portal and may obtain a paper copy of today's plan if desired. Primary pap sentSTD screen sent Contracept [facility] [id number] Z30.9 Happy on OCPRF sent x 1yrCall if issues Health Concerns Section Related Observation LastModified by Organization Detai ls LastModified Time None Recorded Concern Status LastModified by Organization Details LastModified Time None Recorded Advance Directives Directive N: Payers Insurance Date Sequence Insurance Name Policy Number Policy Woody Covered Member ID Woody Member ID Guarantor Name 05/06/2021 1 [employer] [employer] [id number] Sharon Mayberry [id number] Rey Whitten Notes Date Note Type Note Provider Name and Address Organization Details Recorded Time 2 text/html Annual GYNReported by PatientHistoryFor history, patient reportsno gynecologic complaints.Genitourinary symptomsFor menstrual cycle, patient reportsnormal menses. For urinary symptoms, patient reportsno hematuriaandno incontinence. For vulva, patient reportsno genital lesion. For vagina, patient reportsnormal vaginal discharge.Breast symptomsFor breast, patient reportsno breast pain,no breast lump, andno nipple discharge.ContraceptionFo r current contraception, patient reportssatisfied with current contraceptionandoral contraceptives.Endocrine symptomsFor sexual complaints, patient reportsno sexual complaints,no pain during intercourse, andnormal libido. For menopausal symptoms, patient reportsno menopausal symptomsandnormal vaginal lubrication.Psychological symptomsFor psychological symptoms, patient reportsno depression,no anxiety, andno pmdd.Preventative measuresFor preventive measures, patient reportsencourage self breast examination,encourage regular exercise,encourage no tobacco use, andencourage regular mammograms starting age 40. Mia Ortega, HERB[facility]- [address], [place], [address], [facility] 05/06/2021 10:46:34 OBGyn Episode No OBEpisode recorded.
--- OUTSIDE RECORDS SUMMARY | 2025-01-06 12:30 | XMS_ITS | Clinical Summary ---
Author Organization [facility] Address [address] [place] [address] Care Team Providers Care Latexer Name Role Phone Will Goodwin MD Unavailable [phone] Jamal Ojeda MD Primary Care Provider [phone] Source Comments [facility],non-owned Affiliates and Associated Physician Practices is amultiple site organization consisting of ambulatory clinics and hospital sitesin [place], [place], [place] and [place]. This disclosure is being madepursuant to the Care Everywhere program and may not contain all information available regarding this patient. Last updated 17.[facility] Allergies Active Allergy Reactions Criticality Noted Date Comments Doxycycline GI Discomfort 03/02/2017 Odynophagia. Medications * Be aware that medications may not be up to date on this document. Alwaysverify current medications with the patient. lisdexamfetamin e (Vyvanse) 20 MG capsule Take 1 (one) capsule by mouth every morning 30 capsule 12/16/2021 Active Active Problems Problem Noted Date Diagnosed Date Attention or concentration deficit 12/04/2019 Resolved Problems Problem Noted Date Diagnosed Date Resolved Date Abdominal pain, RLQ (right lower quadrant) 05/01/2014 12/04/2019 Immunizations Immunization Administration Dates Next Due INFLUENZA VACCINE, TRIV. (AF LURIA, FLUZONE TRIVALENT; 6MO+) (IIV3) 01/12/2010,11/22/2008 Covid [employer] primary monoval ent 12+ yr 0.3mL Purple cap 03/21/2020,02/29/2020 DTaP VACCINE IM (6wk-6yrs) 10/20/2005,,08/05/2000,04/29,03/02/2000 HEP A PEDS 2 DOSE 06/20/2012,09/24/2011 HEP B VACCINE, PED/ADOL 08/05/2000,03/02/2000, HIB BOOSTER 06/20/2001, 1,08/05/2000,03/02 Human Papilloma Virus Lorna valent Vaccine 06/20/2012,11/26/2011,09/24/2011 INFLUENZA VACCINE 11/27/2019,01/27/2012 INFLUENZA VACCINE, QUADR. (A FLURIA, FLUZONE QUADRIVALENT; 6MO+) (IIV4) 2016 INFLUENZA VACCINE, QUADR. (F LUZONE; FLULAVAL; FLUARIX; AFLURIA QUADRIVALENT; 6MO+), 0.5 ML (IIV4) 11/30/2020 MENINGOCOCCAL ACWY (MCV4P) VAC IM 08/20/2016, MMR 09/24/2011,10/20/2005 PNEUMOCOCCAL CONJ, PEDS 04/29/2000,03/02/2000 POLIO IPV 10/20/2005, 2,08/05/2000,04/29,03/02/2000 TDAP (7yrs+) 06/20/2012 VARICELLA 09/24/2011,10/12/2002 Family History Medical History Relation Name Comments Hypercholesterolemia Paternal Grandfather Hypertension Paternal Grandfather Diabetes Paternal Grandmother Relation Name Status Comments Father Alive Mother Gianni Alive Paternal Grandfather Paternal Grandmother Sister Karie Alive half-brother 1 Milind Alive half-brother 2 Gopal Alive Social History Tobacco Use Types Packs/Day Years Used Date Smoking Tobacco: Never Smokeless Tobacco: Never Alcohol Use Standard Drinks/Week Comments No 0 (1 standard drink = 0.6 oz pur e alcohol) PHQ-2 Answer Date Recorded PHQ2 TOTAL SCORE 2 10/21/2021 Comments No Sex and Gender Information Value Date Recorded Sex Assigned at Not on file Legal 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 Gender Identity Female 10/14/2017 3:14 PM CDT Sexual Orientation Not on file Occupation Industry Job Start Date Job End Date student Not on file Not on file Not on file Last Filed Vital Signs Vital Sign Reading Time Taken Comments Blood Pressure 100/76 12/04/2019 9:30 AM CDT Pulse 83 12/04/2019 9:30 AM CDT Temperature 36.6 C (97.8 F) 12/04/2019 9:30 AM CDT Respiratory Rate 20 03/11/2017 9:08 AM INSOLE COVERER Oxygen Saturation 98% 12/04/2019 9:30 AM CDT Inhaled Oxygen Concentration - - Weight 61.2 kg (135 lb) 10/21/2021 10:20 AM CDT Height 157.5 cm (5' 2) 10/21/2021 10:20 AM CDT Body Mass Index 24.69 10/21/2021 10:20 AM CDT Plan of Treatment Health Maintenance Due Date Last Done Comments HIV SCREENING 12/28/2014 HEPATITIS C SCREENING 12/24/2017 CHLAMYDIA/GONORRHEA SCREENING 05/06/2022 05/06/2021 DTAP/TDAP/TD VACCINES (7 - Td or Tdap) 06/20/2022 06/20/2012, 10/20/2005, 06/20/2001, Additional history exists DEPRESSION SCREENING 02/22/2024 10/21/2021 PAP SMEAR 05/06/2024 05/06/2021 COVID-19 VACCINE ( season) 2024 03/21/2020, 02/29/2020 INFLUENZA VACCINE (#1) 2024 , 11/27/2019, 2016, Additional history exists ZOSTER VACCINE (1 of 2) 12/28/2049 PNEUMOCOCCAL VACCINE Aged Out 04/29/2000, 03/02/19 No longer eligible based on patient's age to complete this topic HEPATITIS B VACCINE Completed 08/05/2000, 03/02/2000, 1999 HIB VACCINE Completed 06/20/2001, 10/2000, 08/05/2000, Additional history exists HPV VACCINE Completed 06/20/2012, 06/2011, 09/24/2011 MENINGOCOCCAL GROUPS A/C/Y/W VACCINE Completed 08/20/2016, 06/20/2012 MENINGOCOCCAL (Group B) VACCINE SHARED DECISION-MAKING Aged Out No longer eligible based on patient's age to complete this topic Goals Goal Patient Goal Type Associated Problems Recent Progress Patient-Stated? Author Yearly PCP visit Lifestyle No Maritza Ortega MA Insurance [facility] [employer] SELF PAY NO INSURANCE Member Subscriber Plan / Payer (Ef fective for All Dates) Name:Rey Mckee Member ID:Not on file Relation to Subscriber:Not on file Name:REY MCKEE Subscriber ID:Not on file Address: [address] [place] [address] Payer ID:Not on file Group ID:Not on file Type:Self Pay Address: [place], [place] [employer] * Guarantor: REY MCKEE Account Type Relation to Patient Date of Phone Billing Address Personal/Family [address] [place] [address] Care Teams Latexer Relationship Specialty Start Date End Date Jamal Ojeda MD [address] [place] [address] PCP - General Family Medicine 11/25/15 Will Goodwin MD [address] [place] [address] [address] [place] [address] Physical Medicine and Rehabilitation 10/22/11
[2025-01-06] MEDS: KETOROLAC 30 MG/ML VIAL (*BKC) IM (12:39)
== END 2025-01-06 13:39 | disposition home or self-care (01) ==
PROVIDERS: Emergency Provider Student in an Organized Health Care Education/Training Program
DX: S92.351A Displaced fracture of fifth metatarsal bone, right foot, initial encounter for closed fracture (principal); X50.9XXA Other and unspecified overexertion or strenuous movements or postures, initial encounter
CPT/HCPCS: 29515; 73630; 96372; 99284; J1885